=== PATIENT | male | born 1940 ===

== ENCOUNTER 2018-05-29 20:34 | Outpatient (REF) | payer MEDICARE, SELFPAY ==
[2018-05-29 21:22] LABS: CREATININE 1.62 mg/dL (0.70-1.30); Calcium 9.2 mg/dL (8.5-10.1); Chloride 96 mmol/L (98-107); Estimated GFR 41.31 (mL/min/1.73m2); Potassium 4.2 mmol/L (3.5-5.1); Sodium 132 mmol/L (136-145)
[2018-05-29 21:32] LABS: BUN 26 mg/dL (7-18); Glucose 163 mg/dL (70-100)
[2018-05-29 21:35] LABS: HCT 41.3 % (40.0-50.0); HGB 13.7 g/dL (13.5-17.5); Mean Corp. HGB Concentration 33.2 g/dL (32.0-36.0); Mean Corpuscular Hemoglobin 31.6 pg (27.0-33.0); Mean Corpuscular Volume 95.4 fL (80-95); Mean Platelet Volume 9.8 fL (8.0-11.0); Platelet Count 340 x1000/uL (130-400); RBC 4.33 m/cumm (4.50-6.00); RBC Distribution Width 13.3 % (11.8-14.1); White Blood Cell Count 19.47 k/cumm (4.4-10.8)
== END 2018-05-29 20:54 ==
LOC: NCHCN 20:34
PROVIDERS: PCP Physician Assistant; Visit Provider Internal Medicine
DX: I21.4 Non-ST elevation (NSTEMI) myocardial infarction (principal); M54.9 Dorsalgia, unspecified; E11.9 Type 2 diabetes mellitus without complications
CPT/HCPCS: 80048; 85027

== ENCOUNTER 2018-06-30 14:53 | Outpatient (REF) | payer MEDICARE, SELFPAY ==
[2018-06-30 21:47] LABS: Anion Gap 8.8 mmol/L (3-11); BUN 16 mg/dL (7-18); CO2 30.2 mmol/L (21.0-32.0); CREATININE 1.14 mg/dL (0.70-1.30); Calcium 9.2 mg/dL (8.5-10.1); Chloride 101 mmol/L (98-107); Glucose 164 mg/dL (70-100); Potassium 4.1 mmol/L (3.5-5.1); Sodium 140 mmol/L (136-145)
[2018-07-02 10:40] LABS: PSA, Screening 0.8 ng/ml (0-6.5)
== END 2018-06-30 15:13 ==
LOC: NCHCN 14:53
PROVIDERS: PCP Physician Assistant; Visit Provider Nurse Practitioner Family
DX: N39.0 Urinary tract infection, site not specified (principal); Z12.5 Encounter for screening for malignant neoplasm of prostate
CPT/HCPCS: 80048; 84153; 87077; 87086; 87186

== ENCOUNTER 2018-10-02 19:59 | Outpatient (REF) | payer MEDICARE, SELFPAY ==
[2018-10-02 22:22] LABS: COMMENT (LAB VIEW ONLY) 140.81 mg/dL; Microalb ug/mg Crea 424.5 ug/mg Cr
== END 2018-10-02 20:19 ==
LOC: NCHCN 19:59
PROVIDERS: PCP Physician Assistant; Visit Provider Nurse Practitioner Family
DX: E11.9 Type 2 diabetes mellitus without complications (principal)
CPT/HCPCS: 82043; 82570

== ENCOUNTER 2018-10-15 11:02 | Outpatient (REF) | payer MEDICARE, SELFPAY ==
[2018-10-15 19:31] LABS: PROTEIN 58.5 mg/dL
[2018-10-15 19:39] LABS: COMMENT (LAB VIEW ONLY) 71.99 mg/dL; Prot/Crea Ur Ratio 0.81
[2018-10-19 14:03] LABS: Albumin 56.9 % (55.8-66.1); Total Protein 6.4 g/dl (6.3-8.2)
[2018-10-19 17:39] LABS: Albumin 73 %; Alpha 1-Globulin 4 %; Alpha 2-Globulin 7 %; Total Protein 50 mg/dL
== END 2018-10-15 11:22 ==
LOC: NCHCN 11:02
PROVIDERS: PCP Physician Assistant; Visit Provider Nurse Practitioner Family
DX: R80.9 Proteinuria, unspecified (principal)
CPT/HCPCS: 84156; 84166; 86335; 82565; 84155; 84165; 86320

== ENCOUNTER 2019-08-16 12:11 | Outpatient (REF) | payer MEDICARE, SELFPAY ==
[2019-08-16 19:52] LABS: Anion Gap 10.7 mmol/L (3-11); BUN 18 mg/dL (7-18); CO2 27.3 mmol/L (21.0-32.0); Chloride 104 mmol/L (98-107); Estimated GFR 53.12 (mL/min/1.73m2); Glucose 197 mg/dL (74-106); Potassium 4.4 mmol/L (3.5-5.1); Sodium 142 mmol/L (136-145)
== END 2019-08-16 12:31 ==
LOC: NCHCN 12:11
PROVIDERS: PCP Physician Assistant; Visit Provider Nurse Practitioner Family
DX: I12.9 Hypertensive chronic kidney disease with stage 1 through stage 4 chronic kidney disease, or unspecified chronic kidney disease (principal)
CPT/HCPCS: 80048

== ENCOUNTER 2020-06-02 18:28 | Outpatient (REF) | payer MEDICARE, SELFPAY ==
[2020-06-02 19:40] LABS: Abs Immature Grans 0.04 10^3/uL (0.0-0.06); Absolute Basophil Count 0.04 10^3/uL (0.0-0.2); Absolute Eosinophil Count 0.31 10^3/uL (0.0-0.7); Absolute Lymphocyte Count 2.27 10^3/uL (1.2-3.4); Absolute Monocyte Count 0.98 10^3/uL (0.1-0.8); Absolute Neutrophil Count 6.88 10^3/uL (1.2-6.7); Basophils % 0.4; Eosinophils % 2.9; HCT 41.8 % (40.0-50.0); HGB 14.1 g/dL (13.5-17.5); Immature Grans % 0.4; Lymphocytes % 21.6; MCH 31.6 pg (27.0-33.0); MCHC 33.7 % (32.0-36.0); MCV 93.7 fL (80-95); MPV 10.4 fL (8.0-11.0); Monocytes % 9.3; Neutrophils % 65.4; Nucleated RBC 0 %; Platelet Count 303 10^3/uL (130-400); RBC 4.46 10^6/uL (4.36-5.78); RDW 12.6 % (11.8-14.1); RDW-SD 43.5 fL; WBC 10.52 10^3/uL (4.4-10.8)
[2020-06-02 20:17] LABS: ALT 66 U/L (16-63); AST 31 U/L (15-37); Albumin 3.8 g/dL (3.4-5.0); Alkaline Phosphatase 69 U/L (46-116); Anion Gap 9.6 mmol/L (3-11); BUN 24 mg/dL (7-18); Bilirubin, Total 0.5 mg/dL (0.2-1.0); CO2 27.4 mmol/L (21.0-32.0); CREATININE 1.54 mg/dL (0.70-1.30); Calcium 9.5 mg/dL (8.5-10.1); Chloride 100 mmol/L (98-107); Estimated GFR 43.57 (mL/min/1.73m2); Glucose 221 mg/dL (74-106); LDL CHOLESTEROL 57 mg/dL (<100); Potassium 4.2 mmol/L (3.5-5.1); Sodium 137 mmol/L (136-145); TSH (W/Ref FT4) 2.68 uIU/mL (0.36-3.74); Vitamin B12 479 pg/mL (193-986)
[2020-06-05 06:00] LABS: Vitamin D 25 Total 36.9 ng/ml (30-100)
== END 2020-06-02 18:48 ==
LOC: NCHCN 18:28
PROVIDERS: PCP Physician Assistant; Visit Provider Physician Assistant
DX: I12.9 Hypertensive chronic kidney disease with stage 1 through stage 4 chronic kidney disease, or unspecified chronic kidney disease (principal); E11.9 Type 2 diabetes mellitus without complications; E55.9 Vitamin D deficiency, unspecified; R53.83 Other fatigue
CPT/HCPCS: 80053; 82306; 83721; 82607; 84443; 85025

== ENCOUNTER 2021-01-25 16:27 | Outpatient (REF) | payer MEDICARE, SELFPAY ==
[2021-01-25 19:26] LABS: ALT 67 U/L (16-63); Anion Gap 11.3 mmol/L (3-11); BUN 24 mg/dL (7-18); CO2 28.7 mmol/L (21.0-32.0); CREATININE 1.6 mg/dL (0.70-1.30); Calcium 9.3 mg/dL (8.5-10.1); Chloride 102 mmol/L (98-107); Estimated GFR 41.69 (mL/min/1.73m2); Glucose 111 mg/dL (74-106); LDL CHOLESTEROL 64 mg/dL (<100); Potassium 3.9 mmol/L (3.5-5.1); Sodium 142 mmol/L (136-145)
[2021-01-25 19:41] LABS: HCT 40.5 % (40.0-50.0); HGB 13.7 g/dL (13.5-17.5); MCH 30.9 pg (27.0-33.0); MCHC 33.8 % (32.0-36.0); MCV 91.4 fL (80-95); MPV 10.3 fL (8.0-11.0); Platelet Count 295 10^3/uL (130-400); RBC 4.43 10^6/uL (4.36-5.78); RDW-SD 43.5 fL; WBC 11.88 10^3/uL (4.4-10.8)
== END 2021-01-25 16:28 | disposition home or self-care (01) ==
LOC: NCHCN 16:27
PROVIDERS: PCP Physician Assistant; Visit Provider Internal Medicine
DX: I73.9 Peripheral vascular disease, unspecified (principal); I10 Essential (primary) hypertension; I21.4 Non-ST elevation (NSTEMI) myocardial infarction
CPT/HCPCS: 80048; 83721; 85027; 84460

== ENCOUNTER 2021-02-23 16:52 | Outpatient (REF) | payer MEDICARE, SELFPAY ==
[2021-02-23 19:02] LABS: ESR 11 mm/hr (0-20)
[2021-02-23 19:49] LABS: ALT 50 U/L (16-63); AST 23 U/L (15-37); Albumin 3.7 g/dL (3.4-5.0); Alkaline Phosphatase 82 U/L (46-116); BUN 40 mg/dL (7-18); Bilirubin, Total 0.4 mg/dL (0.2-1.0); CREATININE 1.7 mg/dL (0.70-1.30); Calcium 9.8 mg/dL (8.5-10.1); Chloride 105 mmol/L (98-107); Estimated GFR 38.88 (mL/min/1.73m2); Ferritin 59 ng/mL (26-388); Glucose 209 mg/dL (74-106); Potassium 4.4 mmol/L (3.5-5.1); Sodium 143 mmol/L (136-145); Total Protein 7.2 g/dL (6.4-8.2)
[2021-02-26 09:06] LABS: PSA, Diagnostic 1.2 ng/mL (0.0-6.5)
[2021-02-26 14:17] LABS: Albumin 57.1 % (55.8-66.1); Total Protein 6.7 g/dL (6.3-8.2)
== END 2021-02-23 16:53 | disposition home or self-care (01) ==
LOC: NCHCN 16:52
PROVIDERS: PCP Physician Assistant; Visit Provider Internal Medicine
DX: R94.5 Abnormal results of liver function studies (principal); R07.1 Chest pain on breathing; M54.9 Dorsalgia, unspecified; E11.9 Type 2 diabetes mellitus without complications; R94.8 Abnormal results of function studies of other organs and systems
CPT/HCPCS: 80053; 85652; 82728; 84153; 84165